=== PATIENT | male | born 1965 | race Caucasian/White ===

== ENCOUNTER 2017-06-23 23:11 | Inpatient (IN) | payer OTHER ==
[~2017-06-23] VITALS: Ht 182.9 cm; Wt 88.0 kg
[2017-06-24 00:22] LABS: BASOPHILS % (AUTO) 0.5 % (0.0-2.0); EOSINOPHILS # (AUTO) 0.5 /CMM (0.0-0.7); HEMATOCRIT 41 % (39-51); HEMOGLOBIN 13.5 g/dL (13.5-17.5); LYMPHOCYTES % (AUTO) 34.7 % (20.0-44.0); MEAN CORPUSCULAR HEMOGLOBIN 30 PG (26.0-33.0); MEAN CORPUSCULAR HGB CONC 33 g/dl (31.0-36.0); MEAN CORPUSCULAR VOLUME 91 fL (80-96); MONOCYTES # (AUTO) 0.7 /CMM (0.1-1.30); NEUTROPHILS # (AUTO) 4.4 /CMM (1.8-8.9); NEUTROPHILS % (AUTO) 50.8 % (43.0-81.0); PLATELET COUNT (AUTO) 289 /CMM (150-450); RDW COEFFICIENT OF VARIATION 12.5 (11.5-15.0); RED BLOOD CELL COUNT(AUTO) 4.45 MIL/uL (4.5-6.0); WHITE BLOOD COUNT (AUTO) 8.7 K/uL (4.3-11.0)
[2017-06-24 00:23] LABS: INR 0.96 (0.87-1.13); PROTHROMBIN TIME 10.3 SECS (9.5-12.7)
[2017-06-24] MEDS ORDERED: NITROGLYCERIN PACKET 1 GM PACKET ONE (00:26)
[2017-06-24] MEDS ORDERED: ASPIRIN 81 MG TAB.CHEW ONE (00:26)
[2017-06-24] MEDS ORDERED: NITROGLYCERIN PACKET 1 GM PACKET TD ONE (00:30)
[2017-06-24] MEDS ORDERED: ASPIRIN 81 MG TAB.CHEW PO ONE (00:30)
[2017-06-24 00:34] LABS: CARBON DIOXIDE 28 mmol/L (21-32); CHLORIDE 106 mmol/L (98-107); CREATININE 1.1 mg/dL (0.6-1.3); GLUCOSE 90 mg/dL (74-106); POTASSIUM 3.9 mmol/L (3.5-5.1); SODIUM SERUM 143 mmol/L (136-145); UREA NITROGEN, BLOOD 13 mg/dL (7-18)
[2017-06-24 00:37] LABS: TROPONIN I < 0.017 ng/mL (0.00-0.056)
[2017-06-24] MEDS ORDERED: METOPROLOL TARTRATE INJ 5 MG/5 ML AMPUL IVP ONE (01:30)
[2017-06-24] MEDS ORDERED: ENOXAPARIN SODIUM 40 MG/0.4 ML DISP.SYRIN SQ ONE (01:59)
[2017-06-24] MEDS ORDERED: ENOXAPARIN SODIUM 40 MG/0.4 ML DISP.SYRIN SQ SCH ×2 (02:00→21:00)
[2017-06-24] MEDS ORDERED: MAGNESIUM HYDROXIDE 30 ML UDC PO PRN (02:00)
[2017-06-24] MEDS ORDERED: ZOLPIDEM TARTRATE 5 MG TABLET PO PRN (02:00)
[2017-06-24] MEDS ORDERED: ACETAMINOPHEN 325 MG TABLET PO PRN (02:00)
[2017-06-24] MEDS ORDERED: ONDANSETRON HCL/PF 4 MG/2 ML VIAL IVP PRN (02:00)
[2017-06-24] MEDS ORDERED: Z GUARD REMEDY 2 OZ OINT TP PRN (02:00)
[2017-06-24 04:00] VITALS: BP 117/69
[2017-06-24 06:37] VITALS: BP 117/69
[2017-06-24 07:29] LABS: TROPONIN I < 0.017 ng/mL (0.00-0.056)
[2017-06-24 07:47] LABS: CHOLESTEROL 139 mg/dL (<200); HDL CHOLESTEROL 21 mg/dL (40-60); LDL 79 mg/dL (0-99); TRIGLYCERIDES 422 mg/dL (30-150)
[2017-06-24 08:00] VITALS: BP 124/79
[2017-06-24] MEDS ORDERED: AMLO5TAB2 PO (08:21)
[2017-06-24] MEDS ORDERED: OMEP20TA68 PO (08:21)
[2017-06-24] MEDS ORDERED: BENA40TA2 PO (08:21)
[2017-06-24 08:27] VITALS: BP 124/79
[2017-06-24 09:02] LABS: MAGNESIUM 1.9 mg/dL (1.8-2.4)
[2017-06-24] MEDS: PANTOPRAZOLE 40 MG TABLET.DR PO SCH (09:07)
[2017-06-24] MEDS: MORPHINE SULFATE INJ 2 MG/ML DISP.SYRIN IV PRN ×2 (09:07→13:30)
[2017-06-24] MEDS: ASPIRIN 325 MG TABLET PO SCH (09:07)
[2017-06-24] MEDS: MAG HYDROX/AL HYDROX/SIMETH 30 ML UDC PO PRN ×2 (09:07→18:05)
[2017-06-24] MEDS: METOPROLOL TARTRATE 50 MG TABLET PO SCH ×2 (09:12→20:18)
[2017-06-24] MEDS: ATORVASTATIN 40 MG TABLET PO SCH (12:03)
[2017-06-24 16:00] VITALS: BP 151/91
[2017-06-24] MEDS: HYDROCODONE/APAP 5/325MG 1 EACH TABLET PO PRN (18:05)
[2017-06-24 20:00] VITALS: BP 146/86
[2017-06-25] MEDS: HYDROCODONE/APAP 5/325MG 1 EACH TABLET PO PRN (01:24)
[2017-06-25 04:00] VITALS: BP_SYST 126; BP_SYST 146; BP_DIAS 76; BP_DIAS 86
[2017-06-25 06:37] LABS: BASOPHILS % (AUTO) 0.2 % (0.0-2.0); EOSINOPHILS # (AUTO) 0.4 /CMM (0.0-0.7); EOSINOPHILS % (AUTO) 4.3 % (0.0-6.0); HEMATOCRIT 39 % (39-51); HEMOGLOBIN 13.1 g/dL (13.5-17.5); LYMPHOCYTES # (AUTO) 2.6 /CMM (0.8-4.8); LYMPHOCYTES % (AUTO) 31.5 % (20.0-44.0); MEAN CORPUSCULAR HEMOGLOBIN 31 PG (26.0-33.0); MEAN CORPUSCULAR HGB CONC 34 g/dl (31.0-36.0); MEAN CORPUSCULAR VOLUME 91 fL (80-96); MONOCYTES # (AUTO) 0.6 /CMM (0.1-1.30); MONOCYTES % (AUTO) 6.8 % (2.0-12.0); NEUTROPHILS # (AUTO) 4.8 /CMM (1.8-8.9); NEUTROPHILS % (AUTO) 57.2 % (43.0-81.0); PLATELET COUNT (AUTO) 263 /CMM (150-450); RED BLOOD CELL COUNT(AUTO) 4.23 MIL/uL (4.5-6.0); WHITE BLOOD COUNT (AUTO) 8.4 K/uL (4.3-11.0)
[2017-06-25 06:56] LABS: CALCIUM, SERUM 8.9 mg/dL (8.5-10.1); POTASSIUM 4.1 mmol/L (3.5-5.1)
[2017-06-25 08:00] VITALS: BP 146/86
[2017-06-25] MEDS ORDERED: REGADENOSON 0.4 MG/5 ML DISP.SYRIN IVP ONE (08:00)
[2017-06-25] MEDS: PANTOPRAZOLE 40 MG TABLET.DR PO SCH (09:32)
[2017-06-25] MEDS: ATORVASTATIN 40 MG TABLET PO SCH (09:32)
[2017-06-25] MEDS: ASPIRIN 325 MG TABLET PO SCH (09:32)
[2017-06-25] MEDS: METOPROLOL TARTRATE 50 MG TABLET PO SCH (09:33)
[2017-06-25] MEDS ORDERED: METO50TA3 PO (15:32)
[2017-06-25] MEDS ORDERED: ASPI81TA2 PO (15:32)
[2017-06-25 16:00] VITALS: BP 147/90
== END 2017-06-25 16:47 | disposition home or self-care (01) | DRG 198 ==
LOC: ER 23:14 → TELE1 06-24 01:18 → MEDSG1 06-24 11:03
PROVIDERS: ADMIT Nurse Practitioner Acute Care; ATTEND Internal Medicine
DX: I24.9 Acute ischemic heart disease, unspecified (principal); I10 Essential (primary) hypertension; E03.9 Hypothyroidism, unspecified; E78.5 Hyperlipidemia, unspecified
CPT/HCPCS: 36415; 71010-TC; 80048-TC; 80061-TC; 83735-TC; 84100-TC; 84439-TC; 84443-TC; 84484-TC; 85025-TC; 85730-TC; 87081-TC; 93307-TC; A4606; A9502; J1650; J2270; J2785; Z7610

== ENCOUNTER 2019-01-02 16:31 | Emergency (ER) | payer OTHER ==
[~2019-01-02] VITALS: Ht 175.3 cm; Wt 93.0 kg
[~2019-01-02 16:31] MED LIST: AMLO5TAB9 PO; ASPI-1169 PO; BENA40TA8 PO; METO50TA16 PO; OMEP20TA5 PO
--- NOTE | 2019-01-02 17:30 | NUR ---
PT BIBS BILAT FOOT PAIN AND SWELLING X 2 WEEKS; PT AAOX4, PT ON MONITOR, VSS, NAD NOTED, PENDING ER PROVIDER EVAL
[2019-01-02] MEDS ORDERED: ASPIRIN 325 MG TABLET PO ONE (18:00)
[2019-01-02] MEDS ORDERED: FUROSEMIDE 20 MG/2 ML VIAL IV ONE (18:00)
[2019-01-02 18:11] LABS: BASOPHILS # (AUTO) 0.1 /CMM (0.0-0.2); BASOPHILS % (AUTO) 1.3 % (0.0-2.0); EOSINOPHILS % (AUTO) 5.8 % (0.0-6.0); HEMATOCRIT 39 % (39-51); HEMOGLOBIN 13.4 g/dL (13.5-17.5); LYMPHOCYTES # (AUTO) 2.5 /CMM (0.8-4.8); LYMPHOCYTES % (AUTO) 31.7 % (20.0-44.0); MEAN CORPUSCULAR HGB CONC 34 g/dl (31.0-36.0); MEAN CORPUSCULAR VOLUME 91 fL (80-96); MONOCYTES # (AUTO) 0.6 /CMM (0.1-1.30); MONOCYTES % (AUTO) 7.3 % (2.0-12.0); NEUTROPHILS # (AUTO) 4.3 /CMM (1.8-8.9); NEUTROPHILS % (AUTO) 53.9 % (43.0-81.0); PLATELET COUNT (AUTO) 252 /CMM (150-450); RED BLOOD CELL COUNT(AUTO) 4.29 MIL/uL (4.5-6.0); WHITE BLOOD COUNT (AUTO) 7.9 K/uL (4.3-11.0)
[2019-01-02 18:26] LABS: CALCIUM, SERUM 8.9 mg/dL (8.5-10.1); CARBON DIOXIDE 28 mmol/L (21-32); CHLORIDE 104 mmol/L (98-107); CREATININE 1.1 mg/dL (0.6-1.3); GLUCOSE 178 mg/dL (74-106); POTASSIUM 3.5 mmol/L (3.5-5.1); SODIUM SERUM 137 mmol/L (136-145); UREA NITROGEN, BLOOD 14 mg/dL (7-18)
[2019-01-02 18:29] LABS: ALANINE AMINOTRANSFERASE 70 U/L (12-78); ALBUMIN 3.7 g/dL (3.4-5.0); ALKALINE PHOSPHATASE 94 U/L (46-116); ASPARTATE AMINOTRANSFERASE 38 U/L (15-37); BILIRUBIN,DIRECT 0.1 mg/dL (0.0-0.2); BILIRUBIN,TOTAL 0.6 mg/dL (0.2-1.0); LIPASE 271 U/L (73-393); TOTAL PROTEIN, SERUM 7.6 g/dL (6.4-8.2)
[2019-01-02] MEDS ORDERED: FUROSEMIDE 20 MG/2 ML VIAL ONE (18:40)
[2019-01-02] MEDS ORDERED: ASPIRIN 325 MG TABLET ONE (18:40)
[2019-01-02 18:58] VITALS: BP 142/80
--- NOTE | 2019-01-02 20:00 | NUR ---
Patient discharged to home in stable condition. Written and verbal after care instructions given. Patient verbalizes understanding of instruction. IV removed. Catheter intact and site benign. Pressure and 4x4 applied to site. No bleeding noted.
== END 2019-01-02 20:01 | disposition home or self-care (01) ==
LOC: ER 16:34
DX: R60.0 Localized edema (principal); I10 Essential (primary) hypertension; Z79.82 Long term (current) use of aspirin; Z79.899 Other long term (current) drug therapy
CPT/HCPCS: 36415; 71045; 80048; 80076; 83690; 83880; 84484; 85025; 93005; 96374; 99284; A4606; J1940

== ENCOUNTER 2019-10-01 02:06 | Emergency (ER) | payer OTHER ==
[~2019-10-01] VITALS: Ht 182.9 cm; Wt 92.5 kg
[2019-10-01 02:17] VITALS: BP 146/87
== END 2019-10-01 02:32 | disposition home or self-care (01) ==
LOC: ER 02:09
DX: H10.89 Other conjunctivitis (principal); B99.9 Unspecified infectious disease; I10 Essential (primary) hypertension; Z79.82 Long term (current) use of aspirin; Z79.899 Other long term (current) drug therapy

== ENCOUNTER 2019-10-17 20:19 | Emergency (ER) | payer OTHER ==
[~2019-10-17] VITALS: Ht 180.3 cm; Wt 84.8 kg
--- NOTE | 2019-10-17 20:26 | NUR ---
PT BIBSELF C/O LLQ ABD PAIN RADIATING TO BACK. PT STATES " IHAVE TO PEE EVERY 5 MINS" -SOB AOX4. AMBULATORY. VSS. PT ON MONITOR IN BED 1 WITH FAMILY AT BEDSIDE. WILL CONTINUE TO MONITOR.
[2019-10-17] MEDS ORDERED: KETOROLAC TROMETHAMINE INJ 30 MG/ML VIAL IV ONE (20:30)
[2019-10-17] MEDS ORDERED: LIDOCAINE VISCOUS 2% UD 15 ML UDC MM ONE (20:30)
[2019-10-17] MEDS ORDERED: MAG HYDROX/AL HYDROX/SIMETH 30 ML UDC PO ONE (20:30)
[2019-10-17] MEDS ORDERED: IV NS 0.9% 1,000 ML BAG IV ONE (20:30)
[2019-10-17] MEDS ORDERED: FAMOTIDINE/PF INJ 20 MG/2 ML VIAL IV ONE (20:30)
[2019-10-17] MEDS ORDERED: ACETAMINOPHEN ES 500 MG TABLET PO ONE (20:30)
[2019-10-17] MEDS ORDERED: ONDANSETRON HCL/PF 4 MG/2 ML VIAL IVP ONE (20:30)
--- NOTE | 2019-10-17 20:39 | NUR ---
BLOOD DRAWN AND GIVEN TO [facility]
[2019-10-17 20:41] LABS: BASOPHILS # (AUTO) 0.1 /CMM (0.0-0.2); BASOPHILS % (AUTO) 0.7 % (0.0-2.0); EOSINOPHILS % (AUTO) 2.1 % (0.0-6.0); HEMATOCRIT 39 % (39-51); HEMOGLOBIN 13.3 g/dL (13.5-17.5); LYMPHOCYTES # (AUTO) 1.7 /CMM (0.8-4.8); LYMPHOCYTES % (AUTO) 14.8 % (20.0-44.0); MEAN CORPUSCULAR HGB CONC 34 g/dl (31.0-36.0); MEAN CORPUSCULAR VOLUME 89 fL (80-96); MONOCYTES # (AUTO) 0.6 /CMM (0.1-1.30); MONOCYTES % (AUTO) 5.1 % (2.0-12.0); NEUTROPHILS # (AUTO) 8.7 /CMM (1.8-8.9); NEUTROPHILS % (AUTO) 77.3 % (43.0-81.0); PLATELET COUNT (AUTO) 274 /CMM (150-450); RED BLOOD CELL COUNT(AUTO) 4.39 MIL/uL (4.5-6.0); WHITE BLOOD COUNT (AUTO) 11.2 K/uL (4.3-11.0)
[2019-10-17] MEDS ORDERED: KETOROLAC TROMETHAMINE 15 MG/ML VIAL ONE (20:44)
[2019-10-17] MEDS ORDERED: ONDANSETRON HCL/PF 4 MG/2 ML VIAL ONE (20:44)
[2019-10-17] MEDS ORDERED: ACETAMINOPHEN ES 500 MG TABLET ONE (20:45)
[2019-10-17 20:48] LABS: CALCIUM, SERUM 9.2 mg/dL (8.5-10.1); CREATININE 1.4 mg/dL (0.6-1.3); POTASSIUM 3.9 mmol/L (3.5-5.1)
[2019-10-17 20:55] LABS: ALBUMIN 4.1 g/dL (3.4-5.0); BILIRUBIN,DIRECT 0.1 mg/dL (0.0-0.2); BILIRUBIN,TOTAL 0.8 mg/dL (0.2-1.0); TOTAL PROTEIN, SERUM 7.8 g/dL (6.4-8.2)
[2019-10-17 21:14] LABS: APPEARANCE,URINE Clear (CLEAR); BILIRUBIN,URINE Negative (NEGATIVE); BLOOD, URINE Small Ery/uL (NEGATIVE); COLOR,URINE Yellow (YELLOW); KETONES,URINE Negative (NEGATIVE); LEUKOCYTE ESTERASE ,URINE Negative (NEGATIVE); NITRITE, URINE Negative (NEGATIVE); PROTEIN,URINE Negative (NEGATIVE); UGLUCOSE Negative (NEGATIVE); UROBILINOGEN,URINE 0.2 EU/dL (0.2)
[2019-10-17 21:26] LABS: BACTERIA,URINE Rare /HPF (None Seen); WBC,URINE NONE SEEN /HPF (0-3)
[2019-10-17] MEDS ORDERED: FENTANYL PF 100MCG/2ML AMPUL ONE (21:39)
--- NOTE | 2019-10-17 21:45 | NUR ---
PT TAKEN TO RADIOLOGY VIA [facility]
[2019-10-17] MEDS ORDERED: FENTANYL PF 100MCG/2ML AMPUL IV ONE (22:00)
--- NOTE | 2019-10-17 22:05 | NUR ---
PT RETURNED FROM RADIOLOGY VIA [facility]
[2019-10-17 22:09] VITALS: BP 161/92
--- NOTE | 2019-10-17 22:50 | NUR ---
IV removed. Catheter intact and site benign. Pressure and 4x4 applied to site. No bleeding noted.Patient discharged to home in stable condition. Written and verbal after care instructions given. Patient verbalizes understanding of instruction. PT AMBULATORY WITH STEADY GAIT ACCOMPANIED BY FAMILY.
== END 2019-10-17 22:52 | disposition home or self-care (01) ==
LOC: ER 20:20
DX: K42.9 Umbilical hernia without obstruction or gangrene (principal); N13.2 Hydronephrosis with renal and ureteral calculous obstruction; R39.15 Urgency of urination; R11.2 Nausea with vomiting, unspecified; R31.9 Hematuria, unspecified; D72.829 Elevated white blood cell count, unspecified; D64.9 Anemia, unspecified; N17.9 Acute kidney failure, unspecified; I10 Essential (primary) hypertension; K21.9 Gastro-esophageal reflux disease without esophagitis; Z79.82 Long term (current) use of aspirin; Z79.899 Other long term (current) drug therapy
CPT/HCPCS: 36415; 74176; 80048; 80076; 81001; 83690; 85025; 96361; 96374; 96375; 99284; J1885; J2405; J3010; J7030; 81000-TC

== ENCOUNTER 2019-10-22 20:40 | Emergency (ER) | payer OTHER ==
[~2019-10-22] VITALS: Ht 177.8 cm; Wt 91.6 kg
--- NOTE | 2019-10-22 21:24 | NUR ---
URINE COLLECTED AND SENT TO LAB
--- NOTE | 2019-10-22 21:40 | NUR ---
PT PRESENTED TO THE ER C/O L FLANK PAIN 06/13. PT AMBULATED TO ER #2 GUARDING HIS L SIDE. PT STATED THAT HE WAS JUST HERE AND DX WITH RENAL COLIC.
[2019-10-22 21:57] LABS: BASOPHILS # (AUTO) 0.2 /CMM (0.0-0.2); BASOPHILS % (AUTO) 2.3 % (0.0-2.0); EOSINOPHILS % (AUTO) 3.8 % (0.0-6.0); HEMATOCRIT 40 % (39-51); HEMOGLOBIN 13.3 g/dL (13.5-17.5); LYMPHOCYTES # (AUTO) 1.2 /CMM (0.8-4.8); MEAN CORPUSCULAR HGB CONC 33 g/dl (31.0-36.0); MEAN CORPUSCULAR VOLUME 91 fL (80-96); MONOCYTES # (AUTO) 0.8 /CMM (0.1-1.30); MONOCYTES % (AUTO) 8.1 % (2.0-12.0); NEUTROPHILS # (AUTO) 7.5 /CMM (1.8-8.9); NEUTROPHILS % (AUTO) 73.8 % (43.0-81.0); PLATELET COUNT (AUTO) 283 /CMM (150-450); RED BLOOD CELL COUNT(AUTO) 4.46 MIL/uL (4.5-6.0); WHITE BLOOD COUNT (AUTO) 10.2 K/uL (4.3-11.0)
[2019-10-22 22:15] LABS: CALCIUM, SERUM 9.4 mg/dL (8.5-10.1); CREATININE 1.4 mg/dL (0.6-1.3); POTASSIUM 4.4 mmol/L (3.5-5.1)
[2019-10-22 22:21] LABS: APPEARANCE,URINE Clear (CLEAR); BILIRUBIN,URINE Negative (NEGATIVE); BLOOD, URINE Small Ery/uL (NEGATIVE); COLOR,URINE Yellow (YELLOW); KETONES,URINE Negative (NEGATIVE); LEUKOCYTE ESTERASE ,URINE Negative (NEGATIVE); NITRITE, URINE Negative (NEGATIVE); PH,URINE 5.5 (5.0-8.0); PROTEIN,URINE Negative (NEGATIVE); UGLUCOSE Negative (NEGATIVE); UROBILINOGEN,URINE 0.2 EU/dL (0.2)
[2019-10-22] MEDS ORDERED: IV NS 0.9% 1,000 ML BAG IV ONE (22:30)
[2019-10-22] MEDS ORDERED: ONDANSETRON HCL/PF 4 MG/2 ML VIAL IVP ONE (22:30)
[2019-10-22] MEDS ORDERED: KETOROLAC TROMETHAMINE INJ 30 MG/ML VIAL IV ONE (22:30)
[2019-10-22 22:32] LABS: BACTERIA,URINE Rare /HPF (None Seen); SQUAMOUS EPITHELIAL CELL,UR Few /HPF (None Seen); WBC,URINE NONE SEEN /HPF (0-3)
[2019-10-22 22:32] LABS: ALBUMIN 3.7 g/dL (3.4-5.0); BILIRUBIN,DIRECT 0.1 mg/dL (0.0-0.2); BILIRUBIN,TOTAL 0.7 mg/dL (0.2-1.0); TOTAL PROTEIN, SERUM 8.1 g/dL (6.4-8.2)
[2019-10-22] MEDS ORDERED: ONDANSETRON HCL/PF 4 MG/2 ML VIAL ONE (22:32)
[2019-10-22] MEDS ORDERED: KETOROLAC TROMETHAMINE INJ 30 MG/ML VIAL ONE (22:32)
--- NOTE | 2019-10-22 23:40 | NUR ---
IV removed. Catheter intact and site benign. Pressure and 4x4 applied to site. No bleeding noted. Patient discharged to home in stable condition. Written and verbal after care instructions given. Patient verbalizes understanding of instruction AND RX. PT AMBULATED OUT WITH A STEADY GAIT. VSS. NAD NOTED. PT REC'D A STRAINER AND A STERILE CUP UPON DISCHARGE.
[2019-10-22 23:42] VITALS: BP 138/89
== END 2019-10-22 23:43 | disposition home or self-care (01) ==
LOC: ER 20:42
DX: N13.2 Hydronephrosis with renal and ureteral calculous obstruction (principal); K21.9 Gastro-esophageal reflux disease without esophagitis; I10 Essential (primary) hypertension; Z79.82 Long term (current) use of aspirin; Z79.899 Other long term (current) drug therapy
CPT/HCPCS: 36415; 71045; 74176; 80048; 80076; 81001; 83690; 85025; 96374; 96375; 99284; J1885; J2405; J7030; 81000-TC

== ENCOUNTER 2020-05-12 20:41 | Emergency (ER) | payer OTHER ==
[~2020-05-12] VITALS: Ht 177.8 cm; Wt 81.6 kg
--- NOTE | 2020-05-12 20:55 | NUR ---
PATIENT CAME TO ER BED 7 C/O COUGH FOR 1 xWEEKS. PATIENT DENIES FEVER. PATIENT STATES THAT HE HAS SWELLING IN HIS ETHMOID SINUS REGION. COMPLAINS OF HEADACHE ON THE FRONTAL SINUS REGION. ALSO STATES THAT HE HAS YELLOW SPUTUM. AAOX4. NO SOB. BREATHING EVENLY AND UNLABORED ON ROOM AIR.
[2020-05-12 21:35] VITALS: BP 135/77
--- NOTE | 2020-05-12 21:35 | NUR ---
Patient discharged to home in stable condition. Written and verbal after care instructions given. Patient verbalizes understanding of instruction.
== END 2020-05-12 21:36 | disposition home or self-care (01) ==
LOC: ER 20:45
DX: J40 Bronchitis, not specified as acute or chronic (principal); I10 Essential (primary) hypertension; K21.9 Gastro-esophageal reflux disease without esophagitis; Z79.82 Long term (current) use of aspirin; Z79.899 Other long term (current) drug therapy
CPT/HCPCS: 71045-TC

== ENCOUNTER 2020-12-09 17:14 | Emergency (ER) | payer OTHER ==
[~2020-12-09] VITALS: Ht 177.8 cm; Wt 102.1 kg
[~2020-12-09 17:14] MED LIST changes: +AMLO-212 PO; -AMLO5TAB9 PO
--- NOTE | 2020-12-09 17:40 | NUR ---
"Started Feeling nose congested/SOB/Cough yesterday" Patient a/ox4, breathing even and unlabored, no sob noted. Assisted to er bed 4, changed into a gown.
--- NOTE | 2020-12-09 18:00 | NUR ---
IV LINE ESTABLISHED, BLOOD DRAWN AND SENT TO LAB.
--- NOTE | 2020-12-09 18:07 | NUR ---
COVID RAPID AND PCR SWAB DONE AND SENT TO LAB.
[2020-12-09 18:10] LABS: BASOPHILS # (AUTO) 0.1 /CMM (0.0-0.2); BASOPHILS % (AUTO) 1.2 % (0.0-2.0); EOSINOPHILS % (AUTO) 4.9 % (0.0-6.0); HEMATOCRIT 41 % (39-51); HEMOGLOBIN 13.6 g/dL (13.5-17.5); LYMPHOCYTES # (AUTO) 2.5 /CMM (0.8-4.8); LYMPHOCYTES % (AUTO) 27.6 % (20.0-44.0); MEAN CORPUSCULAR HGB CONC 34 g/dl (31.0-36.0); MEAN CORPUSCULAR VOLUME 89 fL (80-96); MONOCYTES # (AUTO) 0.6 /CMM (0.1-1.30); MONOCYTES % (AUTO) 6.9 % (2.0-12.0); NEUTROPHILS # (AUTO) 5.3 /CMM (1.8-8.9); NEUTROPHILS % (AUTO) 59.4 % (43.0-81.0); PLATELET COUNT (AUTO) 265 /CMM (150-450); RED BLOOD CELL COUNT(AUTO) 4.58 MIL/uL (4.5-6.0)
[2020-12-09 18:24] LABS: ALANINE AMINOTRANSFERASE 87 U/L (12-78); ALBUMIN 3.6 g/dL (3.4-5.0); ALKALINE PHOSPHATASE 103 U/L (46-116); ASPARTATE AMINOTRANSFERASE 43 U/L (15-37); BILIRUBIN,DIRECT 0.1 mg/dL (0.0-0.2); BILIRUBIN,TOTAL 0.6 mg/dL (0.2-1.0); CALCIUM, SERUM 8.8 mg/dL (8.5-10.1); CARBON DIOXIDE 29 mmol/L (21-32); CHLORIDE 102 mmol/L (98-107); CREATININE 1.2 mg/dL (0.6-1.3); GLUCOSE 245 mg/dL (74-106); POTASSIUM 3.6 mmol/L (3.5-5.1); SODIUM SERUM 139 mmol/L (136-145); TOTAL PROTEIN, SERUM 7.6 g/dL (6.4-8.2); UREA NITROGEN, BLOOD 16 mg/dL (7-18)
[2020-12-09] MEDS ORDERED: AZEL137S7 BNOSTRILS (21:03)
[2020-12-09] MEDS ORDERED: ALBU8.5H8 INH (21:33)
[2020-12-09 22:12] VITALS: BP 134/91
== END 2020-12-09 22:12 | disposition home or self-care (01) ==
LOC: ER 17:20
DX: R06.02 Shortness of breath (principal); R74.01 Elevation of levels of liver transaminase levels; I10 Essential (primary) hypertension; K21.9 Gastro-esophageal reflux disease without esophagitis; Z79.82 Long term (current) use of aspirin; Z79.899 Other long term (current) drug therapy; J98.11 Atelectasis; Z20.822 Contact with and (suspected) exposure to COVID-19
CPT/HCPCS: 36415; 71045; 80048; 80076; 83880; 84484 ×2; 85025; 85730; 87426; 93005 ×2; 99285; C9803 ×2; U0003

== ENCOUNTER 2022-11-27 18:05 | Emergency (ER) | payer OTHER ==
[~2022-11-27] VITALS: Ht 177.8 cm; Wt 113.4 kg
[~2022-11-27 18:05] MED LIST changes: +ALBU8.5H8 INH; +AZEL137S7 BNOSTRILS
--- NOTE | 2022-11-27 18:45 | NUR ---
BIBS C/O SORE THROAT, SOB SINCE YESTERDAY. ALSO C/O NOTED HIGH BP SINCE YESTERDAY
--- NOTE | 2022-11-27 19:37 | NUR ---
SWAB FOR RAPID STREP SENT TO LAB
[2022-11-27] MEDS ORDERED: AZIT250T PO (21:02)
--- NOTE | 2022-11-27 21:15 | NUR ---
Patient discharged to home in stable condition. Written and verbal after care instructions given. Patient verbalizes understanding of instruction.
[2022-11-27 21:30] VITALS: BP 160/98
== END 2022-11-27 21:15 | disposition home or self-care (01) ==
LOC: ER 18:10
DX: J40 Bronchitis, not specified as acute or chronic (principal); Z20.822 Contact with and (suspected) exposure to COVID-19; I10 Essential (primary) hypertension; K21.9 Gastro-esophageal reflux disease without esophagitis; E11.9 Type 2 diabetes mellitus without complications; Z79.82 Long term (current) use of aspirin; Z79.899 Other long term (current) drug therapy
CPT/HCPCS: 99284; 71045; 87426; 87880; C9803; 86403-TC